=== PATIENT | male | born 1930 | race Caucasian/White ===

== ENCOUNTER 2016-06-21 17:15 | Emergency (ER) | payer MEDICARE, BC ==
[~2016-06-21] VITALS: Ht 170.2 cm; Wt 64.1 kg
[~2016-06-21 17:15] MED LIST: DOXAZOCIN PO; PROSCAR
[2016-06-21 17:18] VITALS: BP 190/91; PULSE 99; TEMP 98.8
[2016-06-21] MEDS ORDERED: DOXYCYCLINE 10100 MG PO (18:55)
[2016-06-21] MEDS ORDERED: NORCO 325 MG-51 TAB PO (18:55)
== END 2016-06-21 19:06 | disposition home or self-care (01) ==
LOC: COL.ER 17:15
DX: S61.012A Laceration without foreign body of left thumb without damage to nail, initial encounter (principal); W31.2XXA Contact with powered woodworking and forming machines, initial encounter; Z23 Encounter for immunization

== ENCOUNTER 2016-07-03 10:07 | Emergency (ER) | payer MEDICARE, BC ==
[~2016-07-03 10:07] MED LIST changes: +DOXYCYCLINE 10100 MG PO; +NORCO 325 MG-51 TAB PO
[2016-07-03 10:18] VITALS: BP 134/66; PULSE 67; TEMP 98
== END 2016-07-03 10:30 | disposition home or self-care (01) ==
LOC: COL.ER 10:07
DX: Z48.02 Encounter for removal of sutures (principal)

== ENCOUNTER → 2018-01-04 | Outpatient (CLI) | payer MEDICARE, BC | LOC: COL.RAD 13:51 | DX: M25.552 Pain in left hip (principal) | CPT/HCPCS: J3301; Q9967 ==

== ENCOUNTER → 2018-01-14 | Outpatient (CLI) | payer MEDICARE, BC | LOC: COL.VAS 09:53 | DX: I65.29 Occlusion and stenosis of unspecified carotid artery (principal) ==

== ENCOUNTER → 2018-03-11 | Outpatient (CLI) | payer MEDICARE, BC | LOC: COL.RAD 12:45 | DX: N44.2 Benign cyst of testis (principal) ==

== ENCOUNTER → 2018-03-15 | Outpatient (CLI) | payer MEDICARE, BC ==
[2018-03-15 16:49] LABS: HIV 1/2 Antibodies Non-Reactive; HIV-1p24 Antigen Non-Reactive
== END ==
LOC: COL.LAB 15:32
PROVIDERS: Orthopaedic Surgery
DX: Z01.812 Encounter for preprocedural laboratory examination (principal); M16.12 Unilateral primary osteoarthritis, left hip

== ENCOUNTER → 2018-07-14 | Outpatient (CLI) | payer MEDICARE, BC | LOC: MC.RAD 12:50 | DX: N63.10 Unspecified lump in the right breast, unspecified quadrant (principal) ==

== ENCOUNTER 2018-10-31 10:19 | Emergency (ER) | payer MEDICARE, BC ==
[~2018-10-31] VITALS: Ht 170.2 cm; Wt 59.1 kg
[2018-10-31 10:22] VITALS: TEMP 98.6
[2018-10-31 10:58] LABS: HEMATOCRIT 39.5 % (42.0-52.0); HEMOGLOBIN 13.3 g/dl (13.5-18.0); MEAN CELL VOLUME 104 fl (80.0-100.0); MEAN CORPUSCULAR HEMOGLOBIN 35 pg (27.0-31.0); MEAN CORPUSCULAR HGB CONC 34 g/dl (33.0-37.0); MEAN PLATELET VOLUME 9.2 fl (7.4-10.4); PLATELET COUNT 157 K/mm3 (130-400); RED BLOOD COUNT 3.79 M/mm3 (4.20-5.60); REDCELL DISTRIBUTION WIDTH-CV 13.1 % (11.5-14.5)
[2018-10-31 11:10] LABS: ALBUMIN 3.7 gm/dL (3.5-5.0); BILIRUBIN,TOTAL 0.4 mg/dL (0.0-1.0); CALCIUM 8.5 mg/dL (8.4-10.2); CREATININE, serum 0.83 (0.66-1.25); TOTAL PROTEIN 6.7 gm/dL (6.4-8.2)
[2018-10-31 12:59] LABS: BAND 15 % (0-10); LYMPHOCYTE 9 % (20.0-51.0); NEUTROPHILS 74 % (42.0-75.2); PLATELET ESTIMATE NORMAL (NORMAL)
[2018-10-31 13:07] LABS: COLLECTION METHOD CLEAN CATCH
[2018-10-31 13:23] LABS: MUCOUS Present /lpf; PH 5 (5-8); SQUAMOUS EPITHELIAL 0-2 /hpf; URINE APPEARANCE Hazy; URINE BACTERIA Rare /hpf; URINE BILIRUBIN Negative (NEGATIVE); URINE BLOOD 2+ (NEGATIVE); URINE COLOR Yellow; URINE GLUCOSE Negative (NEGATIVE); URINE KETONE Trace (NEGATIVE); URINE LEUKOCYTE ESTERASE Negative (NEGATIVE); URINE NITRATE Negative (NEGATIVE); URINE PROTEIN(semi-quant) Negative (NEGATIVE); URINE UROBILINOGEN Negative (NEGATIVE)
[2018-10-31] MEDS ORDERED: OMNICEF 300MG300 MG PO (13:39)
[2018-10-31 14:00] VITALS: BP 131/64; PULSE 81
== END 2018-10-31 14:10 | disposition home or self-care (01) ==
LOC: COL.ER 10:19
PROVIDERS: Family Medicine
DX: N39.0 Urinary tract infection, site not specified (principal); E86.0 Dehydration
CPT/HCPCS: A4216; J0696; J7030

== ENCOUNTER 2021-11-09 23:13 | Emergency (ER) | payer MEDICARE, BC ==
[~2021-11-09] VITALS: Ht 170.2 cm; Wt 60.5 kg
[~2021-11-09 23:13] MED LIST changes: +OMNICEF 300MG300 MG PO
[2021-11-09 23:17] VITALS: TEMP 98.2
[2021-11-09 23:36] LABS: BASO % 0.6 % (0.0-2.0); EOS # 0.1 K/mm3 (0.0-0.7); EOS % 1.7 % (0.0-4.0); GRAN # 1.7 K/mm3 (1.4-6.5); GRAN % 35.3 % (42.2-75.2); HEMATOCRIT 36.7 % (42.0-52.0); HEMOGLOBIN 12.5 g/dl (13.5-18.0); LYMPH # 2.6 K/mm3 (1.2-3.4); LYMPH % 54.1 % (20.0-51.0); MEAN CELL VOLUME 105 fl (80.0-100.0); MEAN CORPUSCULAR HEMOGLOBIN 36 pg (27-31); MEAN CORPUSCULAR HGB CONC 34 g/dl (33.0-37.0); MEAN PLATELET VOLUME 9.9 fl (7.4-10.4); MONO # 0.4 K/mm3 (0.1-0.6); MONO % 8.1 % (1.7-9.3); PLATELET COUNT 148 K/mm3 (130-400); RED BLOOD COUNT 3.49 M/mm3 (4.20-5.60); REDCELL DISTRIBUTION WIDTH-CV 13.4 % (11.5-14.5)
[2021-11-09 23:46] LABS: INR 1.1 (0.8-3.0); PROTHROMBIN TIME 13.1 SECONDS (9.7-12.8)
[2021-11-09 23:54] LABS: BILIRUBIN,TOTAL 0.4 mg/dL (0.2-1.2); CALCIUM 9.6 mg/dL (8.4-10.2); CREATININE, serum 0.76 mg/dL (0.72-1.25); POTASSIUM 4.2 mmol/L (3.5-4.5); TOTAL PROTEIN 6.7 gm/dL (6.2-8.1)
[2021-11-10 01:00] VITALS: BP 182/93; PULSE 57
== END 2021-11-10 01:00 | disposition home or self-care (01) ==
LOC: COL.ER 23:13
PROVIDERS: Personal Emergency Response Attendant
DX: G45.9 Transient cerebral ischemic attack, unspecified (principal); G93.0 Cerebral cysts; Z79.82 Long term (current) use of aspirin
CPT/HCPCS: Q9967

== ENCOUNTER 2021-12-16 21:56 | Observation (INO) | payer MEDICARE, BC ==
[~2021-12-16] VITALS: Ht 170.2 cm; Wt 60.4 kg
[2021-12-16 22:15] LABS: BASO % 0.8 % (0.0-2.0); EOS # 0.1 K/mm3 (0.0-0.7); EOS % 2.6 % (0.0-4.0); GRAN % 39.5 % (42.2-75.2); HEMOGLOBIN 12.6 g/dl (13.5-18.0); LYMPH # 2.4 K/mm3 (1.2-3.4); LYMPH % 47.6 % (20.0-51.0); MEAN CELL VOLUME 105 fl (80.0-100.0); MEAN CORPUSCULAR HEMOGLOBIN 36 pg (27-31); MEAN CORPUSCULAR HGB CONC 34 g/dl (33.0-37.0); MONO # 0.5 K/mm3 (0.1-0.6); MONO % 9.1 % (1.7-9.3); PLATELET COUNT 152 K/mm3 (130-400); RED BLOOD COUNT 3.49 M/mm3 (4.20-5.60); REDCELL DISTRIBUTION WIDTH-CV 13.2 % (11.5-14.5)
[2021-12-16 22:16] LABS: HEMATOCRIT 36.8 % (42.0-52.0)
[2021-12-16 22:21] LABS: INR 1.1 (0.8-3.0); PROTHROMBIN TIME 12.5 SECONDS (9.7-12.8)
[2021-12-16 22:23] LABS: PARTIAL THROMBOPLASTIN TIME 37.1 SECONDS (26.0-37.0)
[2021-12-16 22:32] LABS: ALBUMIN 3.8 gm/dL (3.4-4.8); BILIRUBIN,TOTAL 0.3 mg/dL (0.2-1.2); CALCIUM 8.9 mg/dL (8.4-10.2); CREATININE, serum 0.74 mg/dL (0.72-1.25); POTASSIUM 4.2 mmol/L (3.5-4.5)
[2021-12-16 22:38] LABS: TROPONIN-I 0.018 ng/mL (0.00-0.033)
[2021-12-16 23:40] LABS: COLLECTION METHOD CLEAN CATCH
[2021-12-17] LABS: SQUAMOUS EPITHELIAL None Seen /hpf (0-10); URINE BACTERIA None Seen /hpf (NONE SEEN)
[2021-12-17 00:01] LABS: URINE APPEARANCE Clear (CLEAR/HAZY); URINE BLOOD TRACE-INTACT (NEGATIVE); URINE COLOR Yellow (YELLOW); URINE GLUCOSE Negative (NEGATIVE); URINE KETONE TRACE (NEGATIVE); URINE NITRATE Negative (NEGATIVE); URINE PROTEIN(semi-quant) Negative (NEGATIVE); URINE UROBILINOGEN 0.2 E.U/dL (0.2-1.0)
[2021-12-17] MEDS ORDERED: ASPIRIN 81M81 MG/TA2 PO (01:24)
[2021-12-17] MEDS ORDERED: VITAMIN B12 781 TAB (01:32)
--- NOTE | 2021-12-17 02:00 | NUR ---
Admitted to medical floor from ER with AMS, Pt is alert/oriented to name, month/year and president, but does not know what happened this evening and why he is here- IV fluids of NS at 100cc/hr, on Fall Risk- up to bathroom with assist-steady on feet. Will have MRI, ECHO, and neuro consult in the morning-
[2021-12-17 02:29] LABS: MAGNESIUM 2.3 mg/dL (1.6-2.6); PHOSPHOROUS 3.4 mg/dL (2.3-4.7)
[2021-12-17 02:51] LABS: TROPONIN-I 0.011 ng/mL (0.00-0.033); TSH w REFLEX 1.59 uIU/mL (0.350-4.940)
[2021-12-17 05:02] VITALS: BP 167/68; PULSE 55; TEMP 97.4
--- NOTE | 2021-12-17 05:55 | NUR ---
Has been resting on and off- having to use urinal at least every hour- B/P 167/68, remains confused as to circumstances. npo FOR ECHO/MRI
[2021-12-17 06:28] LABS: BASO % 0.8 % (0.0-2.0); EOS # 0.1 K/mm3 (0.0-0.7); EOS % 2.8 % (0.0-4.0); GRAN # 1.5 K/mm3 (1.4-6.5); GRAN % 38.6 % (42.2-75.2); HEMOGLOBIN 12.1 g/dl (13.5-18.0); LYMPH % 49.6 % (20.0-51.0); MEAN CORPUSCULAR HEMOGLOBIN 36 pg (27-31); MEAN CORPUSCULAR HGB CONC 33 g/dl (33.0-37.0); MEAN PLATELET VOLUME 10.1 fl (7.4-10.4); MONO # 0.3 K/mm3 (0.1-0.6); MONO % 7.9 % (1.7-9.3); PLATELET COUNT 142 K/mm3 (130-400); RED BLOOD COUNT 3.36 M/mm3 (4.20-5.60); REDCELL DISTRIBUTION WIDTH-CV 13.4 % (11.5-14.5)
[2021-12-17 06:34] LABS: MEAN CELL VOLUME 110 fl (80.0-100.0)
[2021-12-17 06:45] LABS: CALCIUM 8.6 mg/dL (8.4-10.2); CREATININE, serum 0.64 mg/dL (0.72-1.25); POTASSIUM 3.8 mmol/L (3.5-4.5)
--- NOTE | 2021-12-17 08:00 | NUR ---
Pt awake and sitting up in chair. Morning medications given per eMAR. Shift assessment completed. BP 174/88 this am; TOMY Carson administered PRN apresoline. Pt A&Ox4 this morning. Telemetry on. NS infusing in R forearm at 100mL/hr; intact. No edema or redness. Call light within reach.
[2021-12-17 08:15] VITALS: BP 174/88; PULSE 69; TEMP 97.9
--- NOTE | 2021-12-17 09:30 | NUR ---
Pantry Goods Maker met with patient to discuss discharge planning. Patient lives in [place] with his , Eloise (ph#[phone]) and sees Dr. Morales for primary care. Patient obtains medications from [facility] with no difficulties and does not use any DME. Patient is independent with ADLS and advised he walks every morning at 0700. Patient has [employer] in EMR which designates his , Eloise and son, Shiva. Patient remarked that he is a member at [facility]. Patient plans to return home at time of discharge. Discharge Plan: Home
[2021-12-17 11:26] VITALS: BP 152/58; PULSE 71; TEMP 98.5
[2021-12-17 16:01] VITALS: PULSE 67; TEMP 97.5
--- NOTE | 2021-12-17 20:30 | NUR ---
Initial shift assessment done- alert/oriented x4- forgetful of a few things but overall much better than last night- states he feels stronger/better. ready to go home tomorrow! Tele on. up to bathroom with standby assist- voiding small amounts often. Iv fluids finished- INT to R/FA. B/P very good- patient is pleased.
[2021-12-17 20:46] VITALS: BP 139/62; PULSE 81; TEMP 98.1
[2021-12-18 00:41] VITALS: BP 176/73; PULSE 65; TEMP 98
--- NOTE | 2021-12-18 01:05 | NUR ---
B/P 176/73, Apresoline 10mg IV given at this time per orders. Up to bathroom with standby assist- back to bed-alarm on
[2021-12-18 04:42] VITALS: BP 149/62; PULSE 76; TEMP 97.7
--- NOTE | 2021-12-18 06:12 | NUR ---
Blood pressure 149/62 after the Apresoline was given, Pt has been sleeping well tonight-
[2021-12-18 07:42] LABS: CHOLESTEROL RISK RATIO 2.3
[2021-12-18 08:01] VITALS: BP 140/62; PULSE 89; TEMP 97.5
[2021-12-18] MEDS ORDERED: PLAVIX 75MG TAB75 MG PO (08:16)
[2021-12-18] MEDS ORDERED: LIPITOR20 MG PO (08:16)
[2021-12-18] MEDS ORDERED: ZESTRIL 5MG5 MG PO (08:17)
--- NOTE | 2021-12-18 08:41 | NUR ---
Pt assessment complete. Pt is sitting up in bed upon entry, his son is at bedside. Pt is alert and oriented to place and situation but believes it is December. Denies any pain. No SOB. Tolerated breakfast without issues. Neuro check WNL. POC discussed with patient who verbalizes understanding. Call light within reach.
--- NOTE | 2021-12-18 10:10 | NUR ---
Initial visit; Patient preparing to be discharged thanked Fire Sprinkler Fitter for stopping by and offering God's blessings.
--- NOTE | 2021-12-18 11:22 | NUR ---
Discharge paperwork and instructions reviewed with patient. All questions answered at this time. IV to RFA dc'd catheter tip intact. Pt wheeled out of facility by staff at this time.
== END 2021-12-18 11:23 | disposition home or self-care (01) ==
LOC: COL.ER 21:56 → MEDICAL 12-17 00:36
PROVIDERS: Emergency Medicine; Nurse Practitioner Family; ADMIT Hospitalist
DX: R41.82 Altered mental status, unspecified (principal); G45.9 Transient cerebral ischemic attack, unspecified; G93.0 Cerebral cysts; R03.0 Elevated blood-pressure reading, without diagnosis of hypertension; D64.9 Anemia, unspecified; I08.3 Combined rheumatic disorders of mitral, aortic and tricuspid valves; Z79.82 Long term (current) use of aspirin; Z85.820 Personal history of malignant melanoma of skin
CPT/HCPCS: A9575; G0378; J0360; J1650; J7030